=== PATIENT | male | born 1950 | race Caucasian/White ===

== ENCOUNTER 2017-08-25 09:05 | Day surgery (SDC) | payer MEDICARE ==
[2017-08-25] MEDS ORDERED: ASPI-516 CHEW (09:28)
[2017-08-25] MEDS ORDERED: LEVO50TA4 PO (09:28)
[2017-08-25] MEDS ORDERED: MUPIROCIN 2% OINT 1 APPLIC/GM SYR NASAL SCH (09:30)
[2017-08-25] MEDS ORDERED: CHLORHEXIDINE GLUCONATE 2 % 1 PACK (2 CLOTHS) TOPICAL SCH (09:30)
[2017-08-25] MEDS ORDERED: NS 1000 ML IV SCH (09:30)
[2017-08-25] MEDS ORDERED: ceFAZolin 2 GM PREMIX 50 ML IV SCH (09:30)
[2017-08-25] MEDS ORDERED: POVIDONE IODINE 5% (ANTISEPSIS KIT) 4 APPLICATIONS EACH NARE SCH (09:30)
--- NOTE | 2017-08-25 11:56 | MP ---
cc: Melani Bass MD, Vartan MD DATE OF OPERATION: 08/25/2017 PROCEDURE: Loop recorder insertion. INDICATIONS FOR PROCEDURE: Mr. Gibbs is a 66-year-old gentleman with history of cerebrovascular accident, negative carotid Doppler, normal ejection fraction, atrial fibrillation, atrial arrhythmia suspected. He was referred for loop recorder insertion. The risks, the nature and the benefits of the procedure are clearly said to him. Risks include infection, cardiac arrest, stroke and even . He understood and agreed to proceed. PROCEDURE: After written informed consent was obtained, the patient was prepped and draped in the usual sterile fashion. The patient refused sedation. The left parasternal area was anesthetized with 2% Xylocaine. Less than a 1 cm incision was made. Subsequently, the loop was injected under the skin. After adequate sensing obtained, the border was reapproximated using Dermabond and Steri-Strips. No incident reported. The patient tolerated the procedure. Blood loss minimal. 1. IMPLANTED HARDWARE: The implanted loop recorder is a [employer], serial number [id number]. 2. SENSING: Sensing was at 0.53 millivolts 3. SETTINGS: The device set in a tachycardic over 167 and jody under 40. Pause over 3 seconds. CONCLUSION: Successful loop recorder insertion. COMMENT AND RECOMMENDATION: The patient is going to be observed and discharged home later today. MD RENEE Du/NIA , 11:25 AM , 11:55 AM
== END 2017-08-25 11:50 | disposition home or self-care (01) ==
LOC: HDIC 09:05 → HDOC 09:05
PROVIDERS: ATTEND Internal Medicine Interventional Cardiology
DX: Z45.09 Encounter for adjustment and management of other cardiac device (principal); I48.91 Unspecified atrial fibrillation; Z86.73 Personal history of transient ischemic attack (TIA), and cerebral infarction without residual deficits
CPT/HCPCS: 33282; C1764; J0690